=== PATIENT | female | born 2005 | race Caucasian/White ===

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

== ENCOUNTER 2024-02-15 10:59 | Emergency (ER) | payer SELFPAY ==
[2024-02-15 11:05] VITALS: BP 124/88; PULSE 92; RESP 18; TEMP 98; BMI 18.2
== END 2024-02-15 15:37 | disposition home or self-care (01) ==
LOC: JERFT 10:59
DX: S53.401A Unspecified sprain of right elbow, initial encounter (principal); X50.0XXA Overexertion from strenuous movement or load, initial encounter; Y99.0 Civilian activity done for income or pay
CPT/HCPCS: 73070-TC-RT-FY; 73200-TC-RT; 84703; 99284-25